=== PATIENT | male | born 2000 | race Caucasian/White ===

== ENCOUNTER 2019-12-28 18:21 | Emergency (ER) | payer MEDICAID, OTHER ==
[~2019-12-28] VITALS: Ht 177.8 cm; Wt 75.0 kg
[2019-12-28 18:25] VITALS: BP 138/78
[2019-12-28] MEDS ORDERED: LIDOcaine 1% W/epiNEPHrine 1:200,000 10ml vial IJ ONE (18:45)
== END 2019-12-28 19:33 | disposition home or self-care (01) ==
LOC: ER 18:22
DX: S91.111A Laceration without foreign body of right great toe without damage to nail, initial encounter (principal); W45.8XXA Other foreign body or object entering through skin, initial encounter; Y93.89 Activity, other specified; Y92.89 Other specified places as the place of occurrence of the external cause; Y99.8 Other external cause status
CPT/HCPCS: 12002; 99282

== ENCOUNTER 2020-01-04 11:46 | Emergency (ER) | payer OTHER ==
[~2020-01-04] VITALS: Ht 177.8 cm; Wt 77.0 kg
[2020-01-04 11:52] VITALS: BP 120/80
[2020-01-04 12:43] LABS: CLARITY,URINE CLEAR (Clear); COLOR,URINE YELLOW (Yellow); GLUCOSE, URINE NEGATIVE (Neg); KETONES,URINE NEGATIVE (Neg); LEUKOCYTE ESTERASE ,URINE TRACE (Neg); NITRITES, URINE NEGATIVE (Neg); OCCULT BLOOD,URINE NEGATIVE (Neg); PROTEIN,URINE NEGATIVE (Neg); UROBILINOGEN,URINE 0.2 E.U/dL (0.2-1.0)
[2020-01-04 12:44] LABS: UA COLLECTION TYPE VOIDED
[2020-01-04 13:39] LABS: TRANSITIONAL EPI CELLS,URINE FEW /HPF
[2020-01-04 13:40] LABS: BACTERIA,URINE FEW /HPF (Neg); RBC,URINE NONE SEEN /HPF (0-2); SQUAMOUS EPITHELIAL CELL,UR NONE SEEN /LPF (FEW); WBC,URINE 0-4 /HPF (0-4)
--- NOTE | 2020-01-04 14:07 | NUR ---
PT WAS D/C AT 1235 TRIED CDAEN CHANGE BUT WAS NOT WORKING ,CHARGE NURSE NANDA STATED D/C NOW AND PUT NOTE.
== END 2020-01-04 14:07 | disposition home or self-care (01) ==
LOC: ER 13:35
DX: S91.311D Laceration without foreign body, right foot, subsequent encounter (principal); W26.0XXD Contact with knife, subsequent encounter
CPT/HCPCS: 81001; 87088; 99283